=== PATIENT | female | born 1995 | race Caucasian/White ===

== ENCOUNTER 2016-08-28 11:49 | Emergency (ER) | payer MEDICAID ==
[~2016-08-28] VITALS: Ht 157.5 cm; Wt 47.6 kg
--- NOTE | 2016-08-28 11:49 | NUR ---
PRESENTS SELF TO ED DUE TO C/O NAUSEA AND VOMITING "UNABLE TO KEEP FOOD DOWN". PATIENT IS AAO4, APPEARS IN NO APPARENT DISTRESS. RESPIRATION EVEN AND UNLABORED. SKIN IS WARM TO TOUCH AND NON DIAPHORETIC. PT AFEBRILE. VSS. WILL CONT TO MONITOR
[2016-08-28] MEDS ORDERED: LORAZEPAM INJ 2 MG/ML VIAL ONE (12:16)
[2016-08-28] MEDS ORDERED: ONDANSETRON HCL/PF 4 MG/2 ML VIAL ONE (12:17)
[2016-08-28] MEDS ORDERED: IV NS 0.9% 1,000 ML ONE ×2 (12:17→13:07)
[2016-08-28] MEDS ORDERED: IV SET PRIMARY PUMP SET 1 EA INFUS.SET MC ONE (12:18)
[2016-08-28 12:20] LABS: BASOPHILS # (AUTO) 0.1 /CMM (0.0-0.2); BASOPHILS % (AUTO) 0.7 % (0.0-2.0); EOSINOPHILS # (AUTO) 0.1 /CMM (0.0-0.7); EOSINOPHILS % (AUTO) 0.9 % (0.0-6.0); HEMATOCRIT 33 % (33-45); HEMOGLOBIN 10.7 g/dL (11.5-14.8); LYMPHOCYTES # (AUTO) 1.6 /CMM (0.8-4.8); LYMPHOCYTES % (AUTO) 21.3 % (20.0-44.0); MEAN CORPUSCULAR HEMOGLOBIN 24 PG (26.0-33.0); MEAN CORPUSCULAR HGB CONC 33 g/dl (31.0-36.0); MEAN CORPUSCULAR VOLUME 73 fL (82-100); MONOCYTES # (AUTO) 0.5 /CMM (0.1-1.30); MONOCYTES % (AUTO) 6.8 % (2.0-12.0); NEUTROPHILS # (AUTO) 5.1 /CMM (1.8-8.9); NEUTROPHILS % (AUTO) 70.3 % (43.0-81.0); PLATELET COUNT (AUTO) 392 /CMM (150-450); RDW COEFFICIENT OF VARIATION 16.3 (11.5-15.0); RED BLOOD CELL COUNT(AUTO) 4.52 MIL/uL (4.0-5.2); WHITE BLOOD COUNT (AUTO) 7.4 K/uL (4.3-11.0)
--- NOTE | 2016-08-28 12:20 | NUR ---
RAC #[id number] IV ACCESS. BLOOD SAMPLE COLLECTED SENT TO LAB
--- NOTE | 2016-08-28 12:25 | NUR ---
MEDUCATIOS GIVEN ORDERED
[2016-08-28 12:29] LABS: CALCIUM, SERUM 9.7 mg/dL (8.5-10.1); CREATININE 0.9 mg/dL (0.6-1.3); POTASSIUM 4.2 mmol/L (3.5-5.1)
[2016-08-28] MEDS ORDERED: LORAZEPAM INJ 2 MG/ML VIAL IV ONE (12:30)
[2016-08-28] MEDS ORDERED: ONDANSETRON HCL/PF 4 MG/2 ML VIAL IVP ONE (12:30)
[2016-08-28] MEDS ORDERED: IV NS 0.9% 1,000 ML BAG IV ONE ×2 (12:30→13:00)
--- NOTE | 2016-08-28 12:32 | NUR ---
PT UNABLE TO GIVEN URINE AT THIS TIME
[2016-08-28 12:35] LABS: ALBUMIN 4.3 g/dL (3.4-5.0); BILIRUBIN,DIRECT 0.1 mg/dL (0.0-0.2); BILIRUBIN,TOTAL 0.6 mg/dL (0.2-1.0); TOTAL PROTEIN, SERUM 8.3 g/dL (6.4-8.2)
[2016-08-28 14:08] VITALS: BP 106/81
--- NOTE | 2016-08-28 14:09 | NUR ---
IV removed. Catheter intact and site benign. Pressure and 4x4 applied to site. No bleeding noted.Patient discharged to home in stable condition. Written and verbal after care instructions given. Patient verbalizes understanding of instruction.
== END 2016-08-28 14:09 | disposition home or self-care (01) ==
LOC: ER 11:53
DX: R11.2 Nausea with vomiting, unspecified (principal); E86.0 Dehydration; F41.9 Anxiety disorder, unspecified
CPT/HCPCS: 36415; 80048; 80076; 83690; 85025; 96361; 96374; 96375; 99284; A4606; J2060; J2405; J7030 ×2; Z7610

== ENCOUNTER 2017-01-03 23:05 | Emergency (ER) | payer MEDICAID ==
[~2017-01-03] VITALS: Ht 157.5 cm; Wt 50.8 kg
[2017-01-03 23:15] VITALS: BP 122/90
[2017-01-03] MEDS ORDERED: TDAP [DIPH/PERTUSSIS/TET] 0.5 ML VIAL IM ONE (23:41)
[2017-01-03] MEDS ORDERED: AMOX/CLAVULANATE 875 MG TABLET ONE (23:41)
[2017-01-04] MEDS ORDERED: AMOX/CLAVULANATE 875 MG TABLET PO ONE
[2017-01-04] MEDS ORDERED: TDAP [DIPH/PERTUSSIS/TET] 0.5 ML VIAL IM ONE
== END 2017-01-03 23:48 | disposition home or self-care (01) ==
LOC: ER 23:13
DX: S01.85XA Open bite of other part of head, initial encounter (principal); W54.0XXA Bitten by dog, initial encounter; Y93.89 Activity, other specified; Y92.89 Other specified places as the place of occurrence of the external cause; Y99.8 Other external cause status
CPT/HCPCS: 90471; 90715; 99283; A4606; Z7610

== ENCOUNTER 2017-04-13 09:06 | Emergency (ER) | payer MEDICAID ==
[~2017-04-13] VITALS: Ht 157.5 cm; Wt 49.9 kg
[2017-04-13 09:06] VITALS: BP 110/75
== END 2017-04-13 10:56 | disposition home or self-care (01) ==
LOC: ER 09:08
DX: R21 Rash and other nonspecific skin eruption (principal)
CPT/HCPCS: 82962; 99282; A4606; Z7610

== ENCOUNTER 2017-06-20 22:25 | Emergency (ER) | payer MEDICAID ==
[~2017-06-20] VITALS: Ht 157.5 cm; Wt 52.2 kg
[2017-06-20 22:25] VITALS: BP 124/75
== END 2017-06-21 00:29 | disposition home or self-care (01) ==
LOC: ER 22:29
DX: S69.92XA Unspecified injury of left wrist, hand and finger(s), initial encounter (principal); W22.8XXA Striking against or struck by other objects, initial encounter; Y93.89 Activity, other specified; Y92.89 Other specified places as the place of occurrence of the external cause; Y99.8 Other external cause status
CPT/HCPCS: 99283; A4606; A6402; Z7610

== ENCOUNTER 2020-08-17 10:12 | Emergency (ER) | payer MEDICAID ==
[~2020-08-17] VITALS: Ht 157.5 cm; Wt 47.2 kg
--- NOTE | 2020-08-17 10:31 | NUR ---
THE PATIENT ALERT AND O ORIENTED X4. DENIES PAIN. VOMITING X 2 DAYS, UNABLE TO KEEP FOOD IN. IN ROOM AIR AND DENIES SOB. RESPIRATION REGULAR AND UNLABORED. THE PATIENT IS PROVIDED WITH WARM BLANKET. WILL CONTINUE TO MONITOR THE PATIENT.
[2020-08-17 10:53] LABS: BASOPHILS # (AUTO) 0.1 /CMM (0.0-0.2); BASOPHILS % (AUTO) 0.9 % (0.0-2.0); HEMATOCRIT 39 % (33-45); HEMOGLOBIN 13.1 g/dL (11.5-14.8); LYMPHOCYTES # (AUTO) 1.3 /CMM (0.8-4.8); MEAN CORPUSCULAR HGB CONC 34 g/dl (31.0-36.0); MEAN CORPUSCULAR VOLUME 88 fL (82-100); MONOCYTES # (AUTO) 0.4 /CMM (0.1-1.30); MONOCYTES % (AUTO) 6.5 % (2.0-12.0); NEUTROPHILS # (AUTO) 4.6 /CMM (1.8-8.9); NEUTROPHILS % (AUTO) 71.6 % (43.0-81.0); PLATELET COUNT (AUTO) 404 /CMM (150-450); RED BLOOD CELL COUNT(AUTO) 4.46 MIL/uL (4.0-5.2); WHITE BLOOD COUNT (AUTO) 6.4 K/uL (4.3-11.0)
[2020-08-17] MEDS ORDERED: ONDANSETRON HCL/PF 4 MG/2 ML VIAL ONE (10:53)
[2020-08-17] MEDS ORDERED: ONDANSETRON HCL/PF 4 MG/2 ML VIAL IVP ONE (11:00)
[2020-08-17] MEDS ORDERED: IV NS 0.9% 1,000 ML BAG IV ONE (11:00)
[2020-08-17] MEDS ORDERED: LORAZEPAM INJ 2 MG/ML VIAL ONE (11:20)
[2020-08-17 11:22] LABS: CREATININE 0.7 mg/dL (0.6-1.3)
[2020-08-17 11:28] LABS: ALBUMIN 4.5 g/dL (3.4-5.0); BILIRUBIN,DIRECT 0.1 mg/dL (0.0-0.2); BILIRUBIN,TOTAL 0.8 mg/dL (0.2-1.0); TOTAL PROTEIN, SERUM 7.8 g/dL (6.4-8.2)
[2020-08-17] MEDS ORDERED: LORAZEPAM INJ 2 MG/ML VIAL IV ONE (11:30)
[2020-08-17 12:23] LABS: BILIRUBIN,URINE NEGATIVE (NEGATIVE); COLOR,URINE OTHER (YELLOW); LEUKOCYTE ESTERASE ,URINE TRACE (NEGATIVE); NITRITE, URINE NEGATIVE (NEGATIVE); PH,URINE 6.5 (5.0-8.0); PROTEIN,URINE 30 mg/dl (NEGATIVE); UGLUCOSE NEGATIVE (NEGATIVE); UROBILINOGEN,URINE 0.2 EU/dL (0.2)
[2020-08-17 12:53] LABS: RBC,URINE 21-50 /HPF (0-2)
[2020-08-17 12:54] LABS: BACTERIA,URINE Moderate /HPF (None Seen); SQUAMOUS EPITHELIAL CELL,UR Few /HPF (None Seen)
[2020-08-17] MEDS ORDERED: ONDA4TAB5 PO (13:00)
--- NOTE | 2020-08-17 13:26 | NUR ---
Patient discharged to home in stable condition. Written and verbal after care instructions given. Patient verbalizes understanding of instruction.patient refused pain, nausea, and dizziness. stable to d/c home.
[2020-08-17 13:28] VITALS: BP 116/77
== END 2020-08-17 13:28 | disposition home or self-care (01) ==
LOC: ER 10:12
DX: R11.2 Nausea with vomiting, unspecified (principal); F41.9 Anxiety disorder, unspecified
CPT/HCPCS: 36415; 80048; 80076; 81001; 84702; 85025; 87086; 96361; 96374; 96375; 99284; J2060; J2405; J7030

== ENCOUNTER 2022-08-26 01:57 | Emergency (ER) | payer MEDICAID, OTHER ==
[~2022-08-26] VITALS: Ht 160 cm; Wt 53.5 kg
[~2022-08-26 01:57] MED LIST: ONDA4TAB5 PO
--- NOTE | 2022-08-26 02:29 | NUR ---
Pt is noted alert, responsive as she came in C/O RLQ Abdominal pain started around 0030AM with N/Vomiting. Pt care continue as awaits MD orders.
[2022-08-26] MEDS ORDERED: ONDANSETRON HCL/PF 4 MG/2 ML VIAL IVP ONE (02:30)
[2022-08-26] MEDS ORDERED: IV NS 0.9% 1,000 ML BAG IV ONE (02:30)
[2022-08-26] MEDS ORDERED: KETOROLAC TROMETHAMINE INJ 30 MG/ML VIAL IV ONE (02:30)
[2022-08-26] MEDS ORDERED: ONDANSETRON HCL/PF 4 MG/2 ML VIAL ONE ×2 (02:32→05:48)
[2022-08-26] MEDS ORDERED: KETOROLAC TROMETHAMINE INJ 30 MG/ML VIAL ONE (02:32)
[2022-08-26 03:01] LABS: BASOPHILS # (AUTO) 0.1 K/uL (0.0-0.2); BASOPHILS % (AUTO) 0.5 % (0.0-2.0); EOSINOPHILS % (AUTO) 1.3 % (0.0-6.0); HEMATOCRIT 38 % (33-45); HEMOGLOBIN 12.1 g/dL (11.5-14.8); LYMPHOCYTES # (AUTO) 3.8 K/uL (0.8-4.8); MEAN CORPUSCULAR HGB CONC 32 g/dl (31.0-36.0); MEAN CORPUSCULAR VOLUME 86 fL (82-100); MONOCYTES # (AUTO) 1.2 K/uL (0.1-1.30); MONOCYTES % (AUTO) 8.1 % (2.0-12.0); NEUTROPHILS # (AUTO) 9.3 K/uL (1.8-8.9); NEUTROPHILS % (AUTO) 64.1 % (43.0-81.0); PLATELET COUNT (AUTO) 353 K/uL (150-450); RED BLOOD CELL COUNT(AUTO) 4.36 MIL/uL (4.0-5.2); WHITE BLOOD COUNT (AUTO) 14.5 K/uL (4.3-11.0)
--- NOTE | 2022-08-26 03:05 | NUR ---
Urine sent to LAB. Pt care continue.
[2022-08-26 03:41] LABS: BILIRUBIN,URINE NEGATIVE (NEGATIVE); COLOR,URINE YELLOW (YELLOW); LEUKOCYTE ESTERASE ,URINE 1+ (NEGATIVE); NITRITE, URINE POSITIVE (NEGATIVE); PROTEIN,URINE 3+ mg/dl (NEGATIVE); UGLUCOSE NEGATIVE (NEGATIVE); UROBILINOGEN,URINE 0.2 EU/dL (0.2)
[2022-08-26 03:44] LABS: BILIRUBIN,TOTAL 0.2 mg/dL (0.2-1.0); CALCIUM, SERUM 9.4 mg/dL (8.5-10.1); CREATININE 0.7 mg/dL (0.6-1.3); POTASSIUM 3.1 mmol/L (3.5-5.1); TOTAL PROTEIN, SERUM 7.4 g/dL (6.4-8.2)
[2022-08-26 03:51] LABS: BACTERIA,URINE 2+ /HPF (None Seen); MUCUS,URINE Moderate /LPF (None Seen); SQUAMOUS EPITHELIAL CELL,UR 0-2 /HPF (None Seen)
[2022-08-26 03:56] LABS: BILIRUBIN,DIRECT 0.1 mg/dL (0.0-0.2)
--- NOTE | 2022-08-26 04:00 | NUR ---
Pt is noted off the unit to CT. Pt care continue.
--- NOTE | 2022-08-26 04:28 | NUR ---
Pt is noted back from CT. Pt is care continue.
[2022-08-26] MEDS ORDERED: CEFTRIAXONE 1GM BAG (ER ONLY) 1 GM/50 ML PIGGYBACK IV ONE (04:30)
[2022-08-26] MEDS ORDERED: CEFTRIAXONE 1GM BAG (ER ONLY) 50 ML IV ONE (04:33)
[2022-08-26] MEDS ORDERED: CEPH500C2 PO (05:46)
[2022-08-26] MEDS ORDERED: ONDA4TAB5 PO (05:46)
[2022-08-26] MEDS ORDERED: IBUP-1953 PO (05:46)
--- NOTE | 2022-08-26 05:50 | NUR ---
Zofran 4mg IVP given for N/Vomiting. Pt care continue as she will be reassessed for effectiveness.
[2022-08-26] MEDS ORDERED: ONDANSETRON HCL/PF - ER 4 MG/2 ML VIAL IV ONE (06:00)
--- NOTE | 2022-08-26 07:08 | NUR ---
Zofran 4mg IVP noted effective as report is given to the AM receiving nurse. Pt care continue.
[2022-08-26] MEDS ORDERED: POTASSIUM CHLORIDE 20 MEQ TAB.PRT.SR PO ONE ×2 (08:22→08:30)
[2022-08-26 09:28] VITALS: BP 110/80
== END 2022-08-26 09:28 | disposition home or self-care (01) ==
LOC: ER 02:01
DX: N12 Tubulo-interstitial nephritis, not specified as acute or chronic (principal); Z79.899 Other long term (current) drug therapy
CPT/HCPCS: 99285; 74176; 96365; 96375; 96361; 96376; 85025; 80048; 87086; 83690; 80076; 84703; 81001; 36415; J1885; J2405 ×2; J7030; J0696

== ENCOUNTER 2022-09-01 00:32 | Emergency (ER) | payer OTHER ==
[~2022-09-01] VITALS: Ht 160 cm; Wt 49.9 kg
[~2022-09-01 00:32] MED LIST changes: +CEPH500C2 PO; +IBUP-1953 PO
--- NOTE | 2022-09-01 01:13 | NUR ---
BIBS FOR NAUSEA/VOMITING, DIZZINESS, AND RLQ DISCOMFORT. DX WITH PYLONEPHRITIS X6DAYS AGO ON 09/22 OF KEFLEX. REPORTS IMPROVEMENT IN SYMPTOMS UNTIL SHE BECAME SUDDDENLY NAUSEOUS W AN EPISODE OF VOMITING AND DIZZINESS WHICH PROMPTED HER VISIT. PATIENT AWAKE AND ALERT X4 AMBULATES WITH STEADY GAIT. V/S STABLE. UNABLE TO PROVIDE URINE AT THIS TIME.
--- NOTE | 2022-09-01 01:18 | NUR ---
BIBS FOR NAUSEA/VOMITING, DIZZINESS, AND RLQ DISCOMFORT.
[2022-09-01] MEDS ORDERED: IV NS 0.9% 1,000 ML BAG IV ONE ×2 (02:00→05:00)
[2022-09-01] MEDS ORDERED: ONDANSETRON HCL/PF 4 MG/2 ML VIAL IVP ONE (02:00)
[2022-09-01] MEDS ORDERED: ONDANSETRON HCL/PF 4 MG/2 ML VIAL ONE ×2 (02:08→05:09)
--- NOTE | 2022-09-01 02:16 | NUR ---
IV started, meds given, lab drawn and urine sample sent to lab.
[2022-09-01 02:33] LABS: BASOPHILS # (AUTO) 0.1 K/uL (0.0-0.2); BASOPHILS % (AUTO) 0.8 % (0.0-2.0); EOSINOPHILS % (AUTO) 0.9 % (0.0-6.0); HEMATOCRIT 38 % (33-45); HEMOGLOBIN 12.6 g/dL (11.5-14.8); LYMPHOCYTES # (AUTO) 1.9 K/uL (0.8-4.8); LYMPHOCYTES % (AUTO) 20.6 % (20.0-44.0); MEAN CORPUSCULAR HGB CONC 33 g/dl (31.0-36.0); MEAN CORPUSCULAR VOLUME 86 fL (82-100); MONOCYTES # (AUTO) 0.4 K/uL (0.1-1.30); MONOCYTES % (AUTO) 4.4 % (2.0-12.0); NEUTROPHILS # (AUTO) 6.7 K/uL (1.8-8.9); NEUTROPHILS % (AUTO) 73.3 % (43.0-81.0); PLATELET COUNT (AUTO) 390 K/uL (150-450); RED BLOOD CELL COUNT(AUTO) 4.48 MIL/uL (4.0-5.2); WHITE BLOOD COUNT (AUTO) 9.1 K/uL (4.3-11.0)
[2022-09-01 02:35] LABS: BILIRUBIN,URINE NEGATIVE (NEGATIVE); COLOR,URINE YELLOW (YELLOW); LEUKOCYTE ESTERASE ,URINE TRACE (NEGATIVE); NITRITE, URINE NEGATIVE (NEGATIVE); PROTEIN,URINE NEGATIVE (NEGATIVE); UGLUCOSE NEGATIVE (NEGATIVE); UROBILINOGEN,URINE 0.2 EU/dL (0.2)
[2022-09-01 02:42] LABS: CALCIUM, SERUM 9.7 mg/dL (8.5-10.1); CREATININE 0.7 mg/dL (0.6-1.3); POTASSIUM 3.9 mmol/L (3.5-5.1)
[2022-09-01 02:48] LABS: BACTERIA,URINE 2+ /HPF (None Seen)
[2022-09-01 02:48] LABS: ALBUMIN 4.4 g/dL (3.4-5.0); BILIRUBIN,DIRECT 0.1 mg/dL (0.0-0.2); BILIRUBIN,TOTAL 0.4 mg/dL (0.2-1.0)
[2022-09-01 04:31] LABS: BILIRUBIN,URINE NEGATIVE (NEGATIVE); COLOR,URINE YELLOW (YELLOW); LEUKOCYTE ESTERASE ,URINE NEGATIVE (NEGATIVE); NITRITE, URINE NEGATIVE (NEGATIVE); PROTEIN,URINE NEGATIVE (NEGATIVE); UGLUCOSE NEGATIVE (NEGATIVE); UROBILINOGEN,URINE 0.2 EU/dL (0.2)
[2022-09-01 04:54] LABS: BACTERIA,URINE 1+ /HPF (None Seen); WBC,URINE 0-2 /HPF (0-3)
[2022-09-01] MEDS ORDERED: ONDA4TAB5 PO ×2 (04:56→05:18)
[2022-09-01] MEDS ORDERED: NITR-84 PO ×2 (04:56→05:18)
[2022-09-01] MEDS ORDERED: NITROFURANTOIN/MONOHYDRATE MACROCRYSTALS 100 MG CAPSULE PO ONE (05:00)
[2022-09-01] MEDS ORDERED: ONDANSETRON HCL/PF - ER 4 MG/2 ML VIAL IV ONE (05:00)
[2022-09-01] MEDS ORDERED: NITROFURANTOIN/MONOHYDRATE MACROCRYSTALS 100 MG CAPSULE ONE (05:09)
[2022-09-01 06:31] VITALS: BP 124/77
--- NOTE | 2022-09-01 06:32 | NUR ---
Patient discharged to home in stable condition. Written and verbal after care instructions given. Patient verbalizes understanding of instruction.
== END 2022-09-01 06:33 | disposition home or self-care (01) ==
LOC: ER 00:41
DX: N12 Tubulo-interstitial nephritis, not specified as acute or chronic (principal); R42 Dizziness and giddiness; R11.2 Nausea with vomiting, unspecified; R25.1 Tremor, unspecified; Z79.899 Other long term (current) drug therapy
CPT/HCPCS: 99284; 96374; 96361; 96376; 85025; 80048; 87086; 83690; 80076; 84703; 81001 ×2; 36415; J2405 ×3; J7030